=== PATIENT | female | born 1955 | race Caucasian/White ===

== ENCOUNTER 2025-04-04 09:14 | Outpatient (CLI) | payer MEDICARE, OTHER ==
--- NOTE | 2025-04-04 14:29 | RADIOLOGY REPORT ---
PROCEDURE: MR MRI LUMBAR SPINE INDICATION: PAIN IN RIGHT HIP,ENTHESOPATHY, UNSPECIFIED,LUMBAGO WITH SCIATICA, RIGHT SI Exam Date: 04/04/2025 09:18 AM COMPARISON: None TECHNIQUE: MRI lumbar spine without intravenous contrast. FINDINGS: Dextroscoliosis. There are degenerative endplate changes including modic endplate changes with ante rior and lateral osteophytes throughout the lumbar spine. The visualized distal spinal cord and conus medullaris are within normal limits. The conus medullaris appears to terminate within normal limits . The visualized retroperitoneal and paraspinal soft tissues are unremarkable. The following axial levels are detailed below: T12-L1: Unremarkable. L1-L2: There is a mild circumferential disc bulge. No significant central canal or neuroforaminal s tenosis. L2-L3: There is a mild circumferential disc bulge. No significant central canal or neuroforaminal s tenosis. L3-L4: There is a moderate circumferential disc bulge complicated by facet arthropathy associated w ith mild to moderate left neuroforaminal stenosis. No significant central canal stenosis. L4-L5: There is a moderate circumferential disc bulge complicated by facet arthropathy associated w ith mild to moderate bilateral neuroforaminal stenosis. No significant central canal stenosis. L5-S1: There is a moderate circumferential disc bulge complicated by facet arthropathy associated wi th mild to moderate bilateral neuroforaminal stenosis. No significant central canal stenosis. IMPRESSION: 1. Rotoscoliosis with associated multilevel degenerative disease. No significant central canal steno sis. Neural foraminal stenosis as above. HS:Y
== END 2025-04-04 23:59 | disposition home or self-care (01) ==
LOC: MRI02 09:14
PROVIDERS: ATTEND Family Medicine Sports Medicine
DX: M51.17 Intervertebral disc disorders with radiculopathy, lumbosacral region (principal); M25.551 Pain in right hip; M77.9 Enthesopathy, unspecified; M54.50 Low back pain, unspecified; M47.27 Other spondylosis with radiculopathy, lumbosacral region; M48.8X8 Other specified spondylopathies, sacral and sacrococcygeal region; M48.07 Spinal stenosis, lumbosacral region
CPT/HCPCS: 72148